=== PATIENT | female | born 1970 | race Two or more races ===

== ENCOUNTER 2017-03-27 14:08 | Emergency (ER) | payer BC, OTHER ==
[~2017-03-27] VITALS: Ht 170.2 cm; Wt 81.6 kg
[~2017-03-27 14:08] MED LIST: TYLENOL PO
--- NOTE | 2017-03-27 14:23 | NUR ---
46 year old female in room 3, being evaluated by MD for sore throat x 2 days.
--- NOTE | 2017-03-27 14:33 | NUR ---
Patient discharged home in stable conditon. Written and verbal after care instructions given. Patient verbalizes understanding of instructions.
[2017-03-27 14:34] VITALS: BP 114/80
== END 2017-03-27 14:34 | disposition home or self-care (01) ==
LOC: ER 14:08
DX: J02.8 Acute pharyngitis due to other specified organisms (principal)
CPT/HCPCS: A4663

== ENCOUNTER 2017-06-17 07:13 | Outpatient (CLI) | payer BC, OTHER ==
[2017-06-17 07:47] LABS: BASOPHILS # (AUTO) 0.1 K/uL (0.0-8.0); BASOPHILS % (AUTO) 0.7 % (0.0-2.0); EOSINOPHILS # (AUTO) 0.4 K/uL (0.0-0.7); EOSINOPHILS % (AUTO) 4.2 % (0.0-7.0); HEMATOCRIT 40.4 % (31.2-41.9); HEMOGLOBIN 14.4 g/dL (10.9-14.3); LYMPHOCYTES # (AUTO) 2.8 K/uL (20.0-40.0); LYMPHOCYTES % (AUTO) 32.9 % (20.5-51.5); MEAN CORPUSCULAR HEMOGLOBIN 32.4 uug (24.7-32.8); MEAN CORPUSCULAR HGB CONC 36 g/dL (32.3-35.6); MONOCYTES # (AUTO) 0.8 K/uL (2.0-10.0); MONOCYTES % (AUTO) 9.1 % (0.0-11.0); NEUTROPHILS # (AUTO) 4.6 K/uL (1.8-8.9); NEUTROPHILS % (AUTO) 53.1 % (38.5-71.5); PLATELET COUNT (AUTO) 264 K/uL (179-408); RED BLOOD CELL COUNT(AUTO) 4.44 MIL/uL (3.63-4.92); WHITE BLOOD COUNT (AUTO) 8.6 K/uL (3.8-11.8)
[2017-06-17 08:09] LABS: THYROID STIMULATING HORMONE 3.201 mIU/mL (0.358-3.740)
[2017-06-18 06:06] LABS: *TESTOSTERONE, SERUM 9 ng/dL (8-48); PROGESTERONE 0.3 ng/mL (.); PROLACTIN 8.5 ng/mL (4.8-23.3)
[2017-06-21 01:20] LABS: ESTROGENS TOTAL 63 pg/mL (.)
== END 2017-06-17 23:59 | disposition home or self-care (01) ==
LOC: LAB 07:13
DX: L65.9 Nonscarring hair loss, unspecified (principal); R06.02 Shortness of breath
CPT/HCPCS: 36415; 70030-TC; 84146; 84403; 84443; 85025; 86140

== ENCOUNTER 2020-11-07 08:44 | Outpatient (CLI) | payer BC, OTHER ==
[2020-11-07 09:16] LABS: BASOPHILS % (AUTO) 0.3 % (0.0-2.0); EOSINOPHILS # (AUTO) 0.3 K/uL (0.0-0.7); EOSINOPHILS % (AUTO) 3.6 % (0.0-7.0); LYMPHOCYTES # (AUTO) 2.6 K/uL (20.0-40.0); LYMPHOCYTES % (AUTO) 31.4 % (20.5-51.5); MEAN CORPUSCULAR HEMOGLOBIN 31.7 uug (24.7-32.8); MEAN CORPUSCULAR HGB CONC 34 g/dL (32.3-35.6); MONOCYTES # (AUTO) 0.7 K/uL (2.0-10.0); MONOCYTES % (AUTO) 8.7 % (0.0-11.0); NEUTROPHILS # (AUTO) 4.5 K/uL (1.8-8.9); PLATELET COUNT (AUTO) 301 K/uL (179-408); RED BLOOD CELL COUNT(AUTO) 4.41 MIL/uL (3.63-4.92); WHITE BLOOD COUNT (AUTO) 8.1 K/uL (3.8-11.8)
[2020-11-07 09:34] LABS: BILIRUBIN,TOTAL 0.4 mg/dL (0.2-1.0); CREATININE 0.9 mg/dL (0.6-1.3); MAGNESIUM 2.2 mg/dL (1.8-2.4); TOTAL PROTEIN, SERUM 8.3 g/dL (6.4-8.2)
[2020-11-07 09:49] LABS: THYROID STIMULATING HORMONE 2.822 mIU/mL (0.358-3.740)
[2020-11-07 14:16] LABS: *OCCULT BLOOD STOOL NEGATIVE (NEGATIVE)
[2020-11-07 16:46] LABS: *BILIRUBIN,URIN NEGATIVE (NEGATIVE); *COLOR,URINE YELLOW (YELLOW); *KETONES,URINE NEGATIVE (NEGATIVE); *UROBILINOGEN,URINE 0.2 E.U./dl (NORMAL); LEUKOCYTE ESTERASE ,URINE TRACE (NEGATIVE); NITRITE, URINE NEGATIVE (NEGATIVE); PH,URINE 6.5 (5.0-8.0); UGLUCOSE NEGATIVE (NEGATIVE)
[2020-11-07 16:47] LABS: *BLOOD, URINE TRACE (NEGATIVE)
[2020-11-07 16:55] LABS: *CLARITY,URINE SLIGHTLY HAZY (CLEAR); BACTERIA,URINE FEW /HPF (NONE SEEN); SQUAMOUS EPITHELIAL CELL,UR FEW /HPF (NONE SEEN)
[2020-11-08 08:06] LABS: *TESTOSTERONE, SERUM 14 ng/dL (3-41); ESTRADIOL 9.7 pg/mL (.); FOLLICLE STIMULATION HORMONE 51.6 mIU/mL (.); PROGESTERONE 0.1 ng/mL (.)
[2020-11-08 12:06] LABS: *SJOGREN'S ANTI-SS-A 6.3 AI (0.0-0.9); *SJOGREN'S ANTI-SS-B <0.2 AI (0.0-0.9); *SMITH ANTIBODIES <0.2 AI (0.0-0.9); ANTI-DNA(DS) AB, QN <1 IU/mL (0-9)
== END 2020-11-07 23:59 | disposition home or self-care (01) ==
LOC: LAB 08:44
DX: L65.9 Nonscarring hair loss, unspecified (principal); N92.4 Excessive bleeding in the premenopausal period; Z00.00 Encounter for general adult medical examination without abnormal findings
CPT/HCPCS: 36415; 70030-TC; 82306; 82670; 82746; 83001; 83550; 83735; 84403; 84443; 84480; 85025; 85651; 86038; 86140

== ENCOUNTER 2021-01-11 07:35 | Outpatient (CLI) | payer BC, OTHER ==
[2021-01-11 08:50] LABS: BASOPHILS % (AUTO) 0.4 % (0.0-2.0); EOSINOPHILS # (AUTO) 0.3 K/uL (0.0-0.7); EOSINOPHILS % (AUTO) 3.7 % (0.0-7.0); HEMATOCRIT 39.6 % (31.2-41.9); HEMOGLOBIN 13.5 g/dL (10.9-14.3); LYMPHOCYTES # (AUTO) 2.5 K/uL (20.0-40.0); LYMPHOCYTES % (AUTO) 29.1 % (20.5-51.5); MEAN CORPUSCULAR HEMOGLOBIN 31.4 uug (24.7-32.8); MEAN CORPUSCULAR HGB CONC 34 g/dL (32.3-35.6); MEAN CORPUSCULAR VOLUME 91.8 fL (75.5-95.3); MONOCYTES # (AUTO) 0.6 K/uL (2.0-10.0); MONOCYTES % (AUTO) 7.1 % (0.0-11.0); NEUTROPHILS # (AUTO) 5.2 K/uL (1.8-8.9); NEUTROPHILS % (AUTO) 59.7 % (38.5-71.5); PLATELET COUNT (AUTO) 279 K/uL (179-408); RED BLOOD CELL COUNT(AUTO) 4.31 MIL/uL (3.63-4.92); WHITE BLOOD COUNT (AUTO) 8.7 K/uL (3.8-11.8)
== END 2021-01-11 23:59 | disposition home or self-care (01) ==
LOC: LAB 07:35
PROVIDERS: ATTEND Internal Medicine
DX: E16.2 Hypoglycemia, unspecified (principal)
CPT/HCPCS: 84157; 85025; 86038

== ENCOUNTER 2021-05-09 07:12 | Outpatient (CLI) | payer BC ==
[2021-05-09 07:43] LABS: HEMATOCRIT 41.1 % (31.2-41.9); MEAN CORPUSCULAR HEMOGLOBIN 31.5 uug (24.7-32.8); MEAN CORPUSCULAR VOLUME 91.2 fL (75.5-95.3); PLATELET COUNT (AUTO) 272 K/uL (179-408)
[2021-05-09 07:58] LABS: BILIRUBIN,TOTAL 0.5 mg/dL (0.2-1.0); CREATININE 0.8 mg/dL (0.6-1.3); POTASSIUM 4.2 mmol/L (3.5-5.1); TOTAL PROTEIN, SERUM 7.8 g/dL (6.4-8.2)
[2021-05-09 08:55] LABS: THYROID STIMULATING HORMONE 2.095 mIU/mL (0.358-3.740)
== END 2021-05-09 23:59 | disposition home or self-care (01) ==
LOC: LAB 07:12
PROVIDERS: ATTEND Internal Medicine
DX: E86.0 Dehydration (principal); R53.83 Other fatigue
CPT/HCPCS: 36415; 83550; 83735; 84443; 85025; 85651; 86140

== ENCOUNTER 2021-10-05 07:20 | Emergency (ER) | payer BC ==
[~2021-10-05] VITALS: Ht 170.2 cm; Wt 81.6 kg
[2021-10-05 07:33] LABS: *BILIRUBIN,URIN NEGATIVE (NEGATIVE); *BLOOD, URINE 2+ (NEGATIVE); *CLARITY,URINE CLEAR (CLEAR); *COLOR,URINE YELLOW (YELLOW); *KETONES,URINE NEGATIVE (NEGATIVE); *UROBILINOGEN,URINE 0.2 E.U./dl (NORMAL); LEUKOCYTE ESTERASE ,URINE 1+ (NEGATIVE); NITRITE, URINE NEGATIVE (NEGATIVE); PH,URINE 5.5 (5.0-8.0); UGLUCOSE NEGATIVE (NEGATIVE)
[2021-10-05] MEDS ORDERED: CEphaleXIN 500 MG CAPSULE PO ONE (09:15)
[2021-10-05] MEDS ORDERED: CEphaleXIN 500 MG CAPSULE ONE (09:20)
--- NOTE | 2021-10-05 10:01 | NUR ---
Patient discharged to home in stable condition. Written and verbal after care instructions given. Patient verbalizes understanding of instructions. Stressed follow up or return to ER for worsening s/s.
[2021-10-05 13:32] LABS: BACTERIA,URINE NONE SEEN /HPF (NONE SEEN); RBC,URINE 0-3 /HPF (0-3); SQUAMOUS EPITHELIAL CELL,UR NONE SEEN /HPF (NONE SEEN)
[2021-10-05 13:33] LABS: URINE AMORPHOUS URATE MANY /HPF
[2021-10-05] MEDS ORDERED: CEPH500C2 PO (13:51)
[2021-10-05] MEDS ORDERED: ESTR1VAG VG (13:51)
== END 2021-10-05 10:02 | disposition home or self-care (01) ==
LOC: ER 07:20
DX: N39.0 Urinary tract infection, site not specified (principal); Z79.899 Other long term (current) drug therapy
CPT/HCPCS: 87086; A4663

== ENCOUNTER 2021-11-09 08:19 | Outpatient (CLI) | payer BC, OTHER ==
[~2021-11-09 08:19] MED LIST changes: +CEPH500C2 PO; +ESTR1VAG VG
[2021-11-09 08:54] LABS: *BILIRUBIN,URIN NEGATIVE (NEGATIVE); *BLOOD, URINE 1+ (NEGATIVE); *CLARITY,URINE CLEAR (CLEAR); *COLOR,URINE YELLOW (YELLOW); *KETONES,URINE NEGATIVE (NEGATIVE); *UROBILINOGEN,URINE 0.2 E.U./dl (NORMAL); LEUKOCYTE ESTERASE ,URINE NEGATIVE (NEGATIVE); NITRITE, URINE NEGATIVE (NEGATIVE); PH,URINE 5.5 (5.0-8.0); UGLUCOSE NEGATIVE (NEGATIVE)
[2021-11-09 08:55] LABS: HEMATOCRIT 41.1 % (31.2-41.9); MEAN CORPUSCULAR HEMOGLOBIN 31.7 uug (24.7-32.8); MEAN CORPUSCULAR VOLUME 92.1 fL (75.5-95.3); PLATELET COUNT (AUTO) 295 K/uL (179-408)
[2021-11-09 09:16] LABS: BILIRUBIN,TOTAL 0.6 mg/dL (0.2-1.0); CREATININE 0.9 mg/dL (0.6-1.3); POTASSIUM 3.8 mmol/L (3.5-5.1); TOTAL PROTEIN, SERUM 8.4 g/dL (6.4-8.2)
[2021-11-09 13:57] LABS: RBC,URINE 0-3 /HPF (0-3)
[2021-11-09 13:58] LABS: BACTERIA,URINE NONE SEEN /HPF (NONE SEEN); SQUAMOUS EPITHELIAL CELL,UR NONE SEEN /HPF (NONE SEEN); URINE AMORPHOUS URATE MANY /HPF; WBC,URINE 0-3 /HPF (0-3)
== END 2021-11-09 23:59 | disposition home or self-care (01) ==
LOC: LAB 08:19
PROVIDERS: ATTEND Internal Medicine
DX: N39.0 Urinary tract infection, site not specified (principal)
CPT/HCPCS: 36415; 85025; 87086

== ENCOUNTER 2021-12-25 07:28 | Outpatient (CLI) | payer BC, OTHER ==
[2021-12-25 07:54] LABS: BILIRUBIN,TOTAL 0.4 mg/dL (0.2-1.0); CREATININE 0.8 mg/dL (0.6-1.3); POTASSIUM 3.8 mmol/L (3.5-5.1); TOTAL PROTEIN, SERUM 8.2 g/dL (6.4-8.2)
[2021-12-25 08:00] LABS: HEMATOCRIT 39.3 % (31.2-41.9); MEAN CORPUSCULAR HEMOGLOBIN 31.6 uug (24.7-32.8); MEAN CORPUSCULAR VOLUME 89.5 fL (75.5-95.3); PLATELET COUNT (AUTO) 323 K/uL (179-408)
[2021-12-26 05:07] LABS: HEPATITIS B SURFACE AG Negative (Negative)
== END 2021-12-25 23:59 | disposition home or self-care (01) ==
LOC: LAB 07:28
DX: L40.0 Psoriasis vulgaris (principal)
CPT/HCPCS: 36415; 85025; 86480; 86704; 86803; 87340; 87806

== ENCOUNTER 2022-01-08 14:48 | Emergency (ER) | payer BC, OTHER ==
[~2022-01-08] VITALS: Ht 170.2 cm; Wt 81.6 kg
[2022-01-08] MEDS ORDERED: METH4TAB3 PO (14:58)
[2022-01-08] MEDS ORDERED: predniSONE 50 MG TABLET ONE (14:59)
[2022-01-08] MEDS ORDERED: predniSONE 50 MG TABLET PO ONE (15:00)
== END 2022-01-08 15:01 | disposition home or self-care (01) ==
LOC: ER 14:48
DX: L40.8 Other psoriasis (principal); Z79.899 Other long term (current) drug therapy
CPT/HCPCS: 99283; J7512; A4663

== ENCOUNTER 2022-04-19 09:47 | Outpatient (CLI) | payer BC, OTHER ==
[~2022-04-19 09:47] MED LIST changes: +METH4TAB3 PO
[2022-04-19 10:16] LABS: HEMATOCRIT 40.4 % (31.2-41.9); MEAN CORPUSCULAR HEMOGLOBIN 31.4 uug (24.7-32.8); MEAN CORPUSCULAR VOLUME 90.8 fL (75.5-95.3); PLATELET COUNT (AUTO) 380 K/uL (179-408)
[2022-04-19 10:42] LABS: BILIRUBIN,TOTAL 0.5 mg/dL (0.2-1.0); CREATININE 0.9 mg/dL (0.6-1.3); POTASSIUM 4.3 mmol/L (3.5-5.1); TOTAL PROTEIN, SERUM 8.9 g/dL (6.4-8.2)
== END 2022-04-19 23:59 | disposition home or self-care (01) ==
LOC: LAB 09:47
PROVIDERS: ATTEND Dermatology
DX: L40.0 Psoriasis vulgaris (principal)
CPT/HCPCS: 36415; 85025

== ENCOUNTER 2022-05-03 10:36 | Outpatient (CLI) | payer BC, OTHER | END 2022-05-03 23:59 | disposition home or self-care (01) | LOC: RAD 10:36 | PROVIDERS: ATTEND Internal Medicine | DX: M51.36 Other intervertebral disc degeneration, lumbar region (principal); M51.27 Other intervertebral disc displacement, lumbosacral region | CPT/HCPCS: 72110; 72170 ==

== ENCOUNTER 2022-10-07 17:15 | Emergency (ER) | payer BC, OTHER ==
[~2022-10-07] VITALS: Ht 175.3 cm; Wt 81.6 kg
[2022-10-07] MEDS ORDERED: MORPHINE SULFATE 2 MG/1 ML DISP.SYRIN IV ONE (17:30)
[2022-10-07] MEDS ORDERED: IV NORMAL SALINE 1000 ML BAG IV ONE (17:30)
[2022-10-07] MEDS ORDERED: ONDANSETRON 4 MG/2 ML VIAL IV ONE (17:30)
[2022-10-07] MEDS ORDERED: ONDANSETRON 4 MG/2 ML VIAL ONE (17:44)
[2022-10-07] MEDS ORDERED: MORPHINE SULFATE 2 MG/1 ML DISP.SYRIN ONE (17:44)
[2022-10-07 17:45] LABS: HEMATOCRIT 39.1 % (31.2-41.9); MEAN CORPUSCULAR HEMOGLOBIN 30.5 uug (24.7-32.8); PLATELET COUNT (AUTO) 300 K/uL (179-408)
[2022-10-07 18:05] LABS: CARBON DIOXIDE 27 mmol/L (21-32); CHLORIDE 103 mmol/L (98-107); CREATININE 0.8 mg/dL (0.6-1.3); GLUCOSE 129 mg/dL (74-106); POTASSIUM 4.1 mmol/L (3.5-5.1); UREA NITROGEN, BLOOD 20 mg/dL (7-18)
[2022-10-07 18:14] LABS: ALANINE AMINOTRANSFERASE 28 U/L (14-59); ALKALINE PHOSPHATASE 91 U/L (50-136); ASPARTATE AMINOTRANSFERASE 14 U/L (15-37); BILIRUBIN,DIRECT 0.1 mg/dL (0.0-0.2); BILIRUBIN,TOTAL 0.5 mg/dL (0.2-1.0); TOTAL PROTEIN, SERUM 8.1 g/dL (6.4-8.2)
[2022-10-07 18:36] LABS: LIPASE 116 U/L (73-393)
[2022-10-07] MEDS ORDERED: IBUP-1955 PO (18:50)
[2022-10-07] MEDS ORDERED: CYCL10TA9 PO (18:50)
--- NOTE | 2022-10-07 19:31 | NUR ---
Removed IV intact, site benign, bandaged. Gave pt RX and d/c instructions, pt verbalized understanding.
== END 2022-10-07 19:33 | disposition home or self-care (01) ==
LOC: ER 17:18
DX: M54.9 Dorsalgia, unspecified (principal); R55 Syncope and collapse
CPT/HCPCS: 99285; 74176; 96374; 96361; 96375; 80076; 80048; 83690; 85025; 84484; 93005; J2405; J2270; J7040

== ENCOUNTER 2023-10-09 15:12 | Emergency (ER) | payer BC, OTHER ==
[~2023-10-09] VITALS: Ht 175.3 cm; Wt 81.6 kg
[~2023-10-09 15:12] MED LIST changes: +CYCL10TA9 PO; +IBUP-1955 PO
[2023-10-09 15:18] VITALS: O2SAT 99
[2023-10-09] MEDS ORDERED: CYCL10TA9 PO (15:27)
[2023-10-09] MEDS ORDERED: IBUP-1957 PO (15:27)
[2023-10-09] MEDS ORDERED: IBUPROFEN 800 MG TABLET ONE (15:52)
[2023-10-09] MEDS: IBUPROFEN 800 MG TABLET PO ONE (15:57)
== END 2023-10-09 15:57 | disposition home or self-care (01) ==
LOC: ER 15:13
DX: M54.50 Low back pain, unspecified (principal); Z79.899 Other long term (current) drug therapy
CPT/HCPCS: A4606; A4663

== ENCOUNTER 2023-10-22 08:48 | Outpatient (CLI) | payer BC, OTHER ==
[~2023-10-22 08:48] MED LIST changes: +IBUP-1957 PO
[2023-10-22 09:57] LABS: BASOPHILS % (AUTO) 0.4 % (0.0-2.0); EOSINOPHILS # (AUTO) 0.2 K/uL (0.0-0.7); EOSINOPHILS % (AUTO) 3.2 % (0.0-7.0); HEMATOCRIT 39.7 % (31.2-41.9); HEMOGLOBIN 13.7 g/dL (10.9-14.3); LYMPHOCYTES # (AUTO) 2.5 K/uL (0.8-4.8); LYMPHOCYTES % (AUTO) 41.4 % (20.5-51.5); MEAN CORPUSCULAR HEMOGLOBIN 31.4 uug (24.7-32.8); MEAN CORPUSCULAR HGB CONC 35 g/dL (32.3-35.6); MEAN CORPUSCULAR VOLUME 90.9 fL (75.5-95.3); MONOCYTES # (AUTO) 0.4 K/uL (0.1-1.30); MONOCYTES % (AUTO) 7.4 % (0.0-11.0); NEUTROPHILS # (AUTO) 2.9 K/uL (1.8-8.9); NEUTROPHILS % (AUTO) 47.6 % (38.5-71.5); PLATELET COUNT (AUTO) 284 K/uL (179-408); RED BLOOD CELL COUNT(AUTO) 4.36 MIL/uL (3.63-4.92); RED CELL DISTRIBUTION WIDTH 13.1 % (12.3-17.7)
[2023-10-22 10:06] LABS: ALBUMIN 3.9 g/dL (3.4-5.0); BILIRUBIN,TOTAL 0.6 mg/dL (0.2-1.0); CALCIUM 9.3 mg/dL (8.5-10.1); CREATININE 0.8 mg/dL (0.6-1.3); POTASSIUM 3.4 mmol/L (3.5-5.1); TOTAL PROTEIN, SERUM 8.2 g/dL (6.4-8.2)
== END 2023-10-22 23:59 | disposition home or self-care (01) ==
LOC: LAB 08:48
PROVIDERS: ATTEND Dermatology
DX: L40.0 Psoriasis vulgaris (principal); R20.8 Other disturbances of skin sensation; L81.0 Postinflammatory hyperpigmentation
CPT/HCPCS: 36415; 85025; 86480

== ENCOUNTER 2024-04-21 12:40 | Emergency (ER) | payer BC, OTHER ==
[~2024-04-21] VITALS: Ht 170.2 cm; Wt 81.6 kg
[2024-04-21 12:50] VITALS: O2SAT 96
--- NOTE | 2024-04-21 13:03 | NUR ---
PT ARRIVED TO ER, WITH C/O SORE THROAT. MD AND RN ASSESS PT. PT AAOX4, BREATHING EVEN AND UNLABORED AT ROOM AIR. AMBULATORY WITH STEADY GAIT. PT STATES HAVING SORE THROAT AND ONE EPISODE OF MILD FEVER YESTERDAY. REDNESS AND WHITE PATCHES OBSERVED ON HER TONSILS. PT DENIES SOB, CHEST PAIN, COUGH, NAUSEA, VOMITING, FEVER OR CHILLS AT THIS TIME.
[2024-04-21] MEDS ORDERED: IBUP-1955 PO (13:06)
[2024-04-21] MEDS ORDERED: AMOX-430 PO (13:06)
[2024-04-21] MEDS ORDERED: DEXAMETHASONE SOD PHOSPHATE 4 MG INJ ONE (13:07)
[2024-04-21] MEDS: DEXAMETHASONE SOD PHOSPHATE 4 MG INJ IM ONE (13:17)
--- NOTE | 2024-04-21 13:33 | NUR ---
PT SAFETY DISCHARGE BY MD, INSTRUCTIONS AND RX WAS GIVEN, PT VERBALIZES UNDERSTANDING. PT INSTRUCTED TO RETURN IF SYMPTOMS/SIGNS APPEARS OR GET WORSE. PT STABLE, AAOX4, NO C/O PAIN AT THIS TIME, AMBULATORY WITH STEADY GAIT, LEAVES ER WITH ALL BELONGINGS IN HAND.
== END 2024-04-21 13:33 | disposition home or self-care (01) ==
LOC: ER 12:40
DX: J02.9 Acute pharyngitis, unspecified (principal); J40 Bronchitis, not specified as acute or chronic; Z79.1 Long term (current) use of non-steroidal anti-inflammatories (NSAID); Z79.899 Other long term (current) drug therapy
CPT/HCPCS: 99283; 86403; 87070; 96372; J1100; A4606; A4663

== ENCOUNTER 2024-09-12 06:28 | Emergency (ER) | payer BC, OTHER ==
[~2024-09-12] VITALS: Ht 170.2 cm; Wt 80.7 kg
[~2024-09-12 06:28] MED LIST changes: +AMOX-430 PO
[2024-09-12 07:45] VITALS: BP 115/70; TEMP 98; O2SAT 99
[2024-09-12] MEDS ORDERED: ONDA4TAB5 PO (07:48)
== END 2024-09-12 07:55 | disposition home or self-care (01) ==
LOC: ER 06:28
DX: S00.33XA Contusion of nose, initial encounter (principal); S09.90XA Unspecified injury of head, initial encounter; Z79.1 Long term (current) use of non-steroidal anti-inflammatories (NSAID); Z88.7 Allergy status to serum and vaccine; X58.XXXA Exposure to other specified factors, initial encounter; Y93.89 Activity, other specified; Y92.89 Other specified places as the place of occurrence of the external cause; Y99.8 Other external cause status
CPT/HCPCS: 70160; A4606; A4663